=== PATIENT | male | born 1985 | race Two or more races ===

== ENCOUNTER 2025-03-06 08:59 | Emergency (ER) | payer OTHER, SELFPAY ==
[2025-03-06 09:02] VITALS: BMI 34.5
[2025-03-06 09:08] VITALS: BP 124/89; BP 153/104; PULSE 110; RESP 18; TEMP 38.1; O2SAT 97
--- NOTE | 2025-03-06 09:26 | PD.EDRME ---
Rapid Medical Screening Exam [facility] Arrival date/time: 03/06/25 08:59 39-year-old male with no known medical history presents to the emergency room with a chief complaint of right lower quadrant and epigastric abdominal tenderness, fever, nausea x 2 days. Patient was seen by his primary care provider and sent to the emergency room for further evaluation I have greeted and performed a focused initial assessment of this patient. A comprehensive ED assessment and evaluation of the patient, analysis of all test results, and completion of the medical decision making process will be conducted by additional ED providers. Chief Complaint: Abdominal Pain Time Seen by Provider: 03/06/25 09:09 Vital signs: Vital Signs Temperature 100.6 F H 03/06/25 09:08 Pulse Rate 110 H 03/06/25 09:08 Respiratory Rate 18 03/06/25 09:08 Blood Pressure 124/89 H 03/06/25 09:08 Pulse Oximetry (%) 97 03/06/25 09:08 Oxygen Delivery Method Room Air 03/06/25 09:08 Vital signs reviewed by provider: Yes
--- NOTE | 2025-03-06 09:27 | XR_ITS ---
Examination: CT abdomen with intravenous contrast CT pelvis with intravenous contrast 2-D coronal reconstructions 2-D sagittal reconstructions Date and time of exam:March 06, 2025 1146 hours INDICATIONS: Right lower abdominal pain and fever beginning 4 days ago. CTDI: vol (mGy) 12.1 DLP: (mGycm) 871 Technique: Multiple axial sections of the abdomen and pelvis have been obtained. 64 slice high-resolution scanner used. 3 mm axial sections have been obtained, post intravenous injection 60 cc [id number] 2-D sagittal, coronal reconstructions obtained. Low dose protocols were performed. One or more of the following dose reduction techniques were used; automated exposure control, adjustment of the mA and/or KV according to patient size, use of iterative reconstruction technique. Findings: Diffuse fatty infiltration throughout the liver Cholelithiasis No pancreatic or adrenal mass. No renal or ureteral calculi, no hydronephrosis Aorta normal size Normal appendix No pericecal inflammatory change No diverticulitis No prostatomegaly Intact urinary bladder IMPRESSION: Normal appendix Colonic diverticulosis, no diverticulitis
[2025-03-06 09:50] LABS: Lactate (Lactic Acid) 2.2 mMol/L (0.4-2.0)
[2025-03-06 09:56] LABS: Basophils # (Auto) 0.0 Thou/mm3 (0.0-0.2); Basophils % (Auto) 0 % (0-2.5); Eosinophils # (Auto) 0.1 Thou/mm3 (0.0-0.5); Eosinophils % (Auto) 1 % (0-10); Hematocrit 45.7 % (41.0-53.0); Hemoglobin 15.4 g/dL (13.5-16.0); Immature Granulocytes Auto 0.06 Thou/mm3 (0.00-0.00); Lymphocytes # (Auto) 1.3 Thou/mm3 (1.0-4.8); Lymphocytes % (Auto) 13 % (10-50); Mean Corpuscular HGB Conc 33.7 g/dl (31.0-37.0); Mean Corpuscular Hemoglobin 27.5 pg (25.0-35.0); Mean Corpuscular Volume 82 fL (80-100); Monocytes # (Auto) 1.0 Thou/mm3 (0.0-0.8); Monocytes % (Auto) 9 % (0-12); Neutrophils # (Auto) 8.1 Thou/mm3 (1.8-7.7); Neutrophils % (Auto) 77 % (37-80); Nucleated Red Blood Cell # 0.00 Thou/mm3 (0.00-0.00); Nucleated Red Blood Cell % 0 /100 WBC (0); Platelet Count 203 Thou/mm3 (140-440); RDW Standard Deviation 42.9 fL (35.1-43.9); Red Blood Count 5.61 Miln/mm3 (4.50-5.90); White Blood Count 10.5 Thou/mm3 (3.8-10.6)
[2025-03-06 10:24] LABS: Alanine Aminotransferase 32 U/L (10-49); Albumin, Serum 5.0 gm/dL (3.5-5.0); Albumin/Globulin Ratio 1.9 (1.2-2.2); Alkaline Phosphatase 69 U/L (46-116); Anion Gap 8 (7-16); Aspartate Amino Transferase 19 U/L (0-34); BUN/Creatinine Ratio 6 Ratio (12-20); Bilirubin,Total 2.1 mg/dL (0.3-1.2); Blood Urea Nitrogen 7 mg/dL (9-23); Calcium 9.4 mg/dL (8.3-10.6); Calcium (Corrected) 9.4 mg/dL (8.5-10.1); Carbon Dioxide 25.8 mMol/L (20.0-31.0); Chloride 103 mMol/L (98-107); Creatinine (Component) 1.1 mg/dL (0.6-1.3); Estimated Creatinine Clearance 115.0 mL/min (>60); Globulin 2.7 gm/dL (2.3-3.5); Glucose 127 mg/dL (74-106); Osmolality,Calculated 273 (275-295); Potassium 4.1 mMol/L (3.4-5.1); Procalcitonin 0.55 ng/ml (0.0-0.49); Sodium 137 mMol/L (136-145); Total Protein 7.7 gm/dL (5.7-8.2); eGFR > 60 See Note
[2025-03-06 10:48] VITALS: TEMP 38.4
[2025-03-06] MEDS: ACETAMINOPHEN 500 MG TABLET 1000 MG PO (10:48)
[2025-03-06] MEDS: SODIUM CHLORIDE 0.9% 1000 ML 1,000 ML 999 ML IV (11:30)
[2025-03-06 11:45] LABS: Bacteria,Urine Rare; Bilirubin,Urine Negative (Negative); Blood,Urine Negative (Negative); Clarity,Urine Clear (Clear/Hazy); Collection Type, Urine Clean Catch; Color,Urine Yellow (Lt Yel-Yel); Glucose, Urine Negative (Negative); Ketones,Urine Negative (Negative); Leukocyte Esterase,Urine Positive (Negative); Nitrite,Urine Negative (Negative); PH,Urine 6.5 (5.0-7.0); Protein,Urine Trace (Neg - Trace); RBC,Urine 9 /hpf (0-3); Specific Gravity,Urine 1.029 (1.001-1.035); Squamous Epithelial Cell,Urine 2 /hpf (0-5); Urobilinogen,Urine 3.0 mg/dL (0.0-1.0); WBC,Urine 36 /hpf (0-5)
[2025-03-06 11:48] VITALS: TEMP 37.6
[2025-03-06 11:56] VITALS: BP 136/82; PULSE 93; RESP 18; TEMP 37.6; O2SAT 97
--- NOTE | 2025-03-06 12:25 | EDNOTE_ITS ---
ED Abdominal Pain RME/HPI General Chief Complaint: Abdominal Pain Stated complaint: SEND BY PCP FOR ABD PAIN AND BACK PAIN Time seen by provider: 03/06/25 09:09 Arrival date/time: 03/06/25 08:59 Source: patient Mode of arrival: ambulatory Limitations: no limitations RME / HPI RME / HPI narrative: 39-year-old male who states he has no chronic medical illnesses here today with a 1 day history of lower abdominal pain. He denies any nausea or vomiting. No diarrhea. Denies any dysuria urinary frequency. He denies any past surgeries. He states he has remote history of a UTI. Related Data Previous Rx's ?Medication ?Instructions ?Recorded sulfamethoxazole 800 1 tab PO BID 7 days #14 tabs 03/06/25 mg-trimethoprim 160 mg tablet (Bactrim DS) Allergies Allergy/AdvReac Type Severity Reaction Status Date / Time No Known Allergies Allergy Verified 03/06/25 09:02 Review of Systems Review of Systems Systems Reviewed: All systems reviewed, normal except as documented ED Exam General Limitations: Present no limitations General appearance: Present alert and in no apparent distress Head Head exam: Present atraumatic Eye Eye exam: Present normal appearance, PERRL and EOMI ENT ENT exam: Present normal exam, normal oropharynx and mucous membranes moist Neck Neck exam: Present normal inspection, full ROM and trachea midline Chest Chest inspection: Present normal inspection and symmetric chest wall rise Respiratory Respiratory exam: Present normal lung sounds bilaterally Cardiovascular Cardiovascular exam: Present regular rate, normal rhythm and normal heart sounds Abdominal Exam Abdominal exam: Present soft and normal bowel sounds Extremities Exam Extremities exam: Present normal inspection and full ROM Back Exam Back exam: Present normal inspection and full ROM Neurological Exam Neurological exam: Present alert, oriented X3 and CN II-XII intact Psychiatric Psychiatric exam: Present normal affect and normal mood Skin Skin exam: Present warm, dry, intact and normal color Course Quality Measures none Orders Category Date Time Status CT Screening NOW Care 03/06/25 09:[address] abdomen pelvis w con Stat Exams 03/06/25 09:27 Completed Blood Culture (Lab) Stat Lab 03/06/25 09:40 Received CBC Stat Lab 03/06/25 09:35 Completed CMP [Comprehensive Metabolic Panel] Stat Lab 03/06/25 09:35 Completed Chlamydia/GC/TV - PCR Stat Lab 03/06/25 Ordered Lactate (Lactic Acid) Stat Lab 03/06/25 09:35 Completed Lactic Acid [Lactate (Lactic Acid)] Stat Lab 03/06/25 12:43 Completed Procalcitonin Stat Lab 03/06/25 09:35 Completed UA [Urinalysis] Stat Lab 03/06/25 09:40 Completed Urine Culture Stat Lab 03/06/25 09:40 Received Acetaminophen Tab [Tylenol ES Tab] Med 03/06/25 09:27 Discontinued 1,000 mg PO X1 ONE Sodium Chloride 0.9% 1000 ml [Ns] 1,000 ml Med 03/06/25 10:55 Discontinued IV 999 mls/hr Trimethoprim/Sulfa 160/800 Ds [Bactrim Ds] Med 03/06/25 12:25 Discontinued 1 tab PO X1 ONE Vital Signs Vital signs: Vital Signs Temperature 100.6 F H 03/06/25 09:08 Pulse Rate 110 H 03/06/25 09:08 Respiratory Rate 18 03/06/25 09:08 Blood Pressure 124/89 H 03/06/25 09:08 Pulse Oximetry (%) 97 03/06/25 09:08 Oxygen Delivery Method Room Air 03/06/25 09:08 Abdominal Pain MDM MDM Narrative MDM Narrative:: 3-year-old male is here today 1 day history of lower abdominal pain. Workup is consistent with UTI. CT abdomen pelvis reveals cholelithiasis without cholecystitis. Glucose is mildly elevated at 127. Lactic acid was 2.2. Repeat lactic acid is unremarkable. Patient received a bolus of fluids here in addition to Bactrim once his UTI was identified. Patient will be discharged in the ER with a prescription of Bactrim. He is asked to increase oral hydration and use the antibiotic as prescribed. He will return here as needed for any worsening or emergent changes. Patient data External records reviewed:: None Clinical information provided by:: patient Social determinants that could affect healthcare access:: none Patient has the following chronic illnesses:: n/a How is presenting disease/condition affected by chronic disease/condition?: no chronic disease Evaluation data The following diagnostics were reviewed and interpreted by me:: lab results (Mildly elevated glucose at 127 and a lactic acid of 2.2. Urinalysis consistent with UTI) and radiology exam(s) (CT of the abdomen pelvis reveals cholelithiasis without cholecystitis.) Lab and/or radiology exams considered but not ordered:: n/a Interpretation Summary: UTI Medications / Prescriptions Medications or Prescriptions considered but not ordered:: n/a Medication administrations:: Medication Administration History Discontinued Medications Acetaminophen (Acetaminophen 500 Mg Tablet) 1,000 mg PO X1 ONE Stop: 03/06/25 09:28 Last Admin: 03/06/25 10:48 Dose: 1,000 mg Documented By: FRED Sodium Chloride (Ns) 1,000 mls @ 999 mls/hr IV .Q1H1M ONE Stop: 03/06/25 11:55 Last Infusion: 03/06/25 12:31 Dose: Infused Documented By: Admin: 03/06/25 11:30 Dose: 999 mls/hr Documented By: CLARISSA Trimethoprim/Sulfamethoxazole (Trimethoprim/Sulfa 160/800 Ds Tablet) 1 tab PO X1 ONE Stop: 03/06/25 12:26 Last Admin: 03/06/25 12:32 Dose: 1 tab Documented By: CLARISSA See above Consultations Consultation(s) initiated? (list below): No Diagnosis Differential diagnosis abdominal pain: abdominal pain, acute appendicitis, calculus of kidney and diverticulitis Most likely diagnosis given after review of the tests above:: UTI Admission Indicated Admission indicated?: not indicated Admission Request Was there a request for admission?: No Disposition Plan Disposition Plan: Discharge Discharge Attestation Discharge Attestation: The patient and all family members were given an opportunity to ask questions and understood the discharge instructions. Discharge instructions specifically effects, indications for sooner follow up or return to the emergency department, and the expected course of current diagnosis. Patient condition: Stable Discharge Plan Plan Patient Disposition: HOME (Self Care) Patient condition on transfer: Stable Prescriptions/Referrals Prescriptions/Med Rec: New sulfamethoxazole-trimethoprim [Bactrim DS] 800-160 mg tablet 1 tab PO BID 7 Days Qty: 14 0RF Referrals: Tawanna Aldridge MD [Primary Care Provider] - In 1 week Problem List Clinical Impression: Acute UTI Patient/Caregiver Discharge Instructions Education Materials: ED Bladder Infection, Male (Adult) Additional Instructions: - Increase oral hydration. - Use Tylenol and ibuprofen as needed for comfort. - Use the provided antibiotic as prescribed. - Please return here for any worsening changes including increased pain and fevers. Print Language: Hungarian Stand Alone Forms: [employer] Award Info., Patient Portal Info Letter
[2025-03-06] MEDS: TRIMETHOPRIM/SULFA 160/800 DS TABLET 1 TAB PO (12:32)
[2025-03-06 12:49] LABS: Reflex Lactate? Y
[2025-03-06 12:54] LABS: Lactate (Lactic Acid) 1.3 mMol/L (0.4-2.0)
[2025-03-06 13:33] VITALS: BP 147/84; PULSE 90; RESP 17; TEMP 37.1; O2SAT 98
== END 2025-03-06 13:34 | disposition home or self-care (01) ==
PROVIDERS: Nurse Practitioner Family; Physician Assistant Medical; Emergency Provider Family Medicine; PCP Family Medicine
DX: N39.0 Urinary tract infection, site not specified (principal); K57.30 Diverticulosis of large intestine without perforation or abscess without bleeding
CPT/HCPCS: 36415; 74177; 80053; 81001; 83605; 84145; 85025; 87040; 87077; 87086; 87186; 87491; 87591; 87661; 96360; 99285; A4649; J7030; Q9967; A9270